=== PATIENT | male | born 1955 | race Caucasian/White ===

== ENCOUNTER 2017-11-18 11:02 | Emergency (ER) | payer BC ==
--- NOTE | 2017-11-18 11:14 | Emergency Department Record ---
History of Present Illness - General Chief Complaint: Fluid Retention Stated Complaint: RETAINING FLUID/CHF Time Seen by Provider: 11/18/17 11:08 Source: Patient, Family Mode of Arrival: Ambulatory Limitations: No limitations - History of Present Illness Initial comments: 61 yo male presents with about a week of bilateral leg edema and scrotal swelling. He reports he was seen at [facility] ED and told he has "CHF". He states he has not been told he had CHF in the past. He was prescribed a diuretic and discharged from the ED. His doctor was unable to get him in for a follow up appointment. Since starting the medication his edema has not improved. He swelling of both legs and the scrotum. No chest pain. He denies being short of breath. His is able to void. The testicles and scrotum are NOT tender. He does note weigh himself and was not instructed to from [facility]. PCP is Dionisio. -: Days(s) Location: Left, Right, Lower extremity, Other (scrotum) Quality: Aching Consistency: Constant Improves with: None Worsens with: None Associated Symptoms: Denies other symptoms - Hay Coma Scale Eye Response: (4) Open spontaneously Motor Response: (6) Obeys commands Verbal Response: (5) Oriented Hay Total: 15 - Related Data Home Medications Medication Instructions Recorded Confirmed Last Taken Mupirocin 1 gm TP ASDIR 11/18/17 11/18/17 Unknown Torsemide [Demadex] 20 mg PO DAILY 11/18/17 11/18/17 11/18/17 Allergies Allergy/AdvReac Type Severity Reaction Status Date / Time No Known Drug Allergies Allergy Verified 11/18/17 11:22 Review of Systems Constitutional: Denies: Chills, Fever, Malaise, Weakness Eyes: Denies: Eye discharge, Eye pain, Photophobia, Vision change ENT: Denies: Congestion, Throat pain Respiratory: Denies: Cough, Dyspnea, Hemoptysis, Stridor, Wheezes Cardiovascular: Denies: Chest pain, Palpitations, Syncope Endocrine: Denies: Fatigue Gastrointestinal: Denies: Abdominal pain, Diarrhea, Nausea, Vomiting Genitourinary: Denies: Dysuria, Frequency, Hematuria Musculoskeletal: Reports: Joint swelling. Denies: Arthralgia, Back pain, Myalgia, Neck pain Skin: Denies: Bruising, Change in color, Rash Neurological: Denies: Headache, Numbness, Weakness Psychiatric: Denies: Anxiety Hematological/Lymphatic: Denies: Blood Clots, Easy bleeding, Easy bruising, Swollen glands Physical Exam - General General Appearance: Alert, Oriented x3, Cooperative, No acute distress Limitations: No limitations - Head Head exam: Atraumatic, Normocephalic, Normal inspection - Eye Eye exam: Normal appearance, PERRL. negative: Conjunctival injection, Scleral icterus - ENT ENT exam: Normal exam, Mucous membranes moist Ear exam: Normal external inspection Nasal Exam: Normal inspection Mouth exam: Normal external inspection - Neck Neck exam: Normal inspection - Respiratory Respiratory exam: Normal lung sounds bilaterally. negative: Accessory muscle use, Decreased breath sounds, Respiratory distress, Rhonchi, Stridor, Wheezes - Cardiovascular Cardiovascular Exam: Regular rate, Normal rhythm, Normal heart sounds - GI/Abdominal GI/Abdominal exam: Soft. negative: Tenderness - Rectal Rectal exam: Deferred - exam: Scrotal swelling (marked scrotal swellling, erythema CW tinea for rubbing, moisture, warmth, scrotum is soft, penis is not visible) - Extremities Extremities exam: Pedal edema - Back Back exam: Reports: Normal inspection. Denies: CVA tenderness (R), CVA tenderness (L) - Neurological Neurological exam: Alert, Oriented X3 Course - Reevaluation(s) Reevaluation #1: 11/18/17 11:19 Records from [facility] requested 11/18/17 11:53 The CBC was reviewed. No acute changes. 11/18/17 12:24 The BMP was reviewed. Glucose is 344 The UA is negative. No protein 11/18/17 12:28 The [facility] chart was reviewed. 11/14/17. The BNP was 3473, US of the scrotum normal testicles, smal bilateral hydroceles, edema vs cellulitis 11/18/17 12:44 The Troponin is elevated at 0.74, the BNP is elevated at 2295 11/18/17 12:55 EKG 12:48 EKG, sinus vs atrial tach, intervals [id number], axis is left, ST NS anterior changes. I discussed with the patient the need for admission and further work up I recommend transfer to [facility] for admission. 11/18/17 13:13 I LIZZETTE Castaneda She accepts the patient for further work up at [facility] 11/18/17 13:14 CXR CMG otherwise negative Medical Decision Making - Lab Data Result diagrams: 11/18/17 11:36 11/18/17 11:36 Disposition Disposition: Transfer Clinical Impression: Elevated troponin, Elevated brain natriuretic peptide (BNP) level, Hyperglycemia Edema Qualifiers: Edema type: unspecified Qualified Code(s): R60.9 - Edema, unspecified Disposition: Acute Care Hospital Transfer Transfer To: [facility] Reason For Transfer: New onset CHF Accepting Physician: Tonya Time Discussed w/Accepting Physician: 13:14 Condition: (2) Stable Forms: Patient Portal Access Time of Disposition: 12:48 Quality - Quality Measures Quality Measures: N/A - Blood Pressure Screening Does Patient Have Any of the Following: No Blood Pressure Classification: Pre-Hypertensive BP Reading Systolic Measurement: 115 Diastolic Measurement: 86 Screening for High Blood Pressure: < Pre-Hypertensive BP, F/U Documented > [ G8950] Pre-Hypertensive Follow-up Interventions: Referral to alternative/primary care provider.
[2017-11-18 11:42] LABS: HEMOGLOBIN 14.7 gm/dl (14.0-18.0); MEAN CELL VOLUME 91.6 fl (81-97); MEAN CORPUSCULAR HEMOGLOBIN 29.9 pg (27-33); MEAN CORPUSCULAR HGB CONC 32.7 g/dl (32-36); MEAN PLATELET VOLUME 10.3 fl (7.4-10.4); PLATELET COUNT 388 K/uL (130-400); RED BLOOD COUNT 4.91 M/uL (4.40-5.70); RED CELL DISTRIBUTION WIDTH 14.7 % (11.5-14.5); WHITE BLOOD COUNT W/O DIFF 11.1 K/uL (4.2-12.2)
[2017-11-18 11:42] LABS: URINE APPEARANCE CLEAR; URINE BILIRUBIN NEGATIVE (NEGATIVE); URINE BLOOD NEGATIVE (NEGATIVE); URINE COLOR YELLOW; URINE KETONE NEGATIVE (NEGATIVE); URINE LEUKOCYTE ESTERASE NEGATIVE (NEGATIVE); URINE NITRITE NEGATIVE (NEGATIVE); URINE PROTEIN NEGATIVE (NEGATIVE); URINE UROBILINOGEN 0.2 E.U./dL (0.20 - 1.00)
[2017-11-18 11:43] LABS: URINE GLUCOSE (UA) >=1000 mg/dL (NEGATIVE)
[2017-11-18] MEDS ORDERED: NYSTATIN 15 GM TUBE TOP PRN (11:46)
[2017-11-18 11:52] LABS: PLATELET ESTIMATE NORMAL (NORMAL)
[2017-11-18 12:09] LABS: BLOOD UREA NITROGEN 22 mg/dL (8-23); CREATININE 0.6 mg/dL (0.7-1.2); EST GLOMERULAR FILTRATION RATE > 60 mL/min
[2017-11-18 12:11] LABS: GLUCOSE,RANDOM 344 mg/dL (74-109)
[2017-11-18 12:12] LABS: INR 1.02; PARTIAL THROMBOPLASTIN TIME 26.2 SECONDS (24.5-39.1)
[2017-11-18 12:41] LABS: ALBUMIN 3.4 g/dL (4.0-5.0); BILIRUBIN,DIRECT 0.3 mg/dL (0-0.3); BILIRUBIN,TOTAL 0.9 mg/dL (0.2-1.0)
[2017-11-18] MEDS ORDERED: ASPIRIN 81 MG CHEWABLE TABLET PO ONE (12:45)
[2017-11-18] MEDS ORDERED: FUROSEMIDE IV 40MG/4ML VIAL IVP ONE (12:54)
--- NOTE | 2017-11-18 14:53 | RADIOLOGY REPORT ---
EXAM: CHEST, TWO VIEWS HISTORY: CHEST PAIN. TECHNIQUE: Frontal and lateral views of the chest were obtained. Comparison: 11/11/17 chest. FINDINGS: Stable cardiomegaly. Elevation of the right hemidiaphragm with adjacent subsegmental atelectasis, as before. No pneumothorax. Atheromatous change thoracic aorta. IMPRESSION: STABLE CARDIOMEGALY. STABLE ELEVATION OF THE RIGHT HEMIDIAPHRAGM WITH ADJACENT SUBSEGMENTAL ATELECTASIS. JOB NUMBER: [id number] [facility]
== END 2017-11-18 14:52 | disposition short-term general hospital (02) ==
LOC: ER 11:02
DX: R79.89 Other specified abnormal findings of blood chemistry (principal); N44.8 Other noninflammatory disorders of the testis; E11.65 Type 2 diabetes mellitus with hyperglycemia; I10 Essential (primary) hypertension; I50.9 Heart failure, unspecified
CPT/HCPCS: 71020; 80048; 80076; 81003; 83735; 83880; 84484; 85027; 85610; 85730; 93005; 93010; 96374; 99285; J1940

== ENCOUNTER 2018-05-04 12:54 | Emergency (ER) | payer BC ==
--- NOTE | 2018-05-04 13:20 | Emergency Department Record ---
History of Present Illness - General Chief complaint: Male Urogenital Problem Stated complaint: TESTICULAR SWELLING Time Seen by Provider: 05/04/18 13:13 Source: Patient, RN notes reviewed Mode of Arrival: Ambulatory - History of Present Illness Initial comments: patient states swollen left testicle and slightly painful and he had this happen before in October and he was diagnosised with CAD and stents placed and he had atrial fib and ablation therapy. Lisinopril recently stopped because his BP was low on . [employer] Dr. Coleman. This time the testicle started swelling on Sat. 4 days ago. Patient denies chest pain. MD Complaint: Testicle swelling Onset/Timin -: Days(s) Location: Left testicle Severity scale (1-10): 2 Quality: Aching Consistency: Constant Improves with: Rest Worsens with: Movement Reports: Blood in urine - Related Data Home Medications Medication Instructions Recorded Confirmed Last Taken Potassium Chloride [Klor-Con 10] 10 meq PO DAILY 05/04/18 05/04/18 05/04/18 Allergies Allergy/AdvReac Type Severity Reaction Status Date / Time No Known Drug Allergies Allergy Verified 05/04/18 13:01 Travel Screening - Travel/Exposure Within Last 30 Days Have you traveled within the last 30 days?: No - Travel/Exposure Within Last Year Have you traveled outside the [place] in the last year?: No - Additonal Travel Details Have you been exposed to anyone with a communicable illness?: No - Travel Symptoms Symptom Screening: None Review of Systems Reviewed: No additional complaints except as noted below Constitutional: Reports: As per HPI. Denies: Chills, Fever, Malaise, Night sweats, Weakness, Weight change Eyes: Reports: As per HPI. Denies: Eye discharge, Eye pain, Photophobia, Vision change ENT: Reports: As per HPI. Denies: Congestion, Dental pain, Ear pain, Epistaxis , Hearing loss, Throat pain Respiratory: Reports: As per HPI. Denies: Cough, Dyspnea, Hemoptysis, Stridor, Wheezes Cardiovascular: Reports: As per HPI. Denies: Arrhythmia, Chest pain, Dyspnea on exertion, Edema, Murmurs, Orthopnea, Palpitations, Paroxysmal nocturnal dyspnea, Rheumatic Fever, Syncope Endocrine: Reports: As per HPI. Denies: Fatigue, Heat or cold intolerance, Polydipsia, Polyuria Gastrointestinal: Reports: As per HPI. Denies: Abdominal pain, Constipation, Diarrhea, Hematemesis, Hematochezia, Melena, Nausea, Vomiting Genitourinary: Reports: As per HPI. Denies: Dysuria, Frequency, Hematuria, Incontinence, Retention, Testicular pain, Testicular mass, Urgency Musculoskeletal: Reports: As per HPI. Denies: Arthralgia, Back pain, Gout, Joint swelling, Myalgia, Neck pain Skin: Reports: As per HPI. Denies: Bruising, Change in color, Change in hair/ nails, Lesions, Pruritus, Rash Neurological: Reports: As per HPI. Denies: Abnormal gait, Confusion, Headache, Numbness, Paresthesias, Seizure, Tingling, Tremors, Vertigo, Weakness Psychiatric: Reports: As per HPI. Denies: Anxiety, Auditory hallucinations, Depression, Homicidal thoughts, Suicidal thoughts, Visual hallucinations Hematological/Lymphatic: Reports: As per HPI. Denies: Anemia, Blood Clots, Easy bleeding, Easy bruising, Swollen glands Past Medical History - SOCIAL HISTORY Smoking Status: Never smoker Alcohol Use: None Drug Use: None - RESPIRATORY Hx Respiratory Disorders: No - CARDIOVASCULAR Hx Cardio Disorders: Yes Hx CHF: Yes Hx Edema: Yes Hx Hypertension: Yes - NEURO Hx Neuro Disorders: No - GI Hx GI Disorders: No - Hx Genitourinary Disorders: No - ENDOCRINE Hx Endocrine Disorders: Yes Hx Diabetes: Yes - MUSCULOSKELETAL Hx Musculoskeletal Disorders: No - PSYCH Hx Psych Problems: No - HEMATOLOGY/ONCOLOGY Hx Hematology/Oncology Disorders: No Family Medical History Any Significant Family History?: No Physical Exam - General General Appearance: Alert, Oriented x3, Cooperative, No acute distress - Head Head exam: Normal inspection - Eye Eye exam: Normal appearance, PERRL Pupils: Normal accommodation - ENT ENT exam: Normal exam, Mucous membranes moist, Normal external ear exam, Normal orophraynx, TM's normal bilaterally Ear exam: Normal external inspection. negative: External canal tenderness Nasal Exam: Normal inspection. negative: Discharge, Sinus tenderness Mouth exam: Normal external inspection, Tongue normal Teeth exam: Normal inspection. negative: Dental caries Throat exam: Normal inspection. negative: Tonsillar erythema, Tonsillar exudate - Neck Neck exam: Normal inspection, Full ROM. negative: Tenderness - Respiratory Respiratory exam: Normal lung sounds bilaterally. negative: Respiratory distress - Cardiovascular Cardiovascular Exam: Regular rate, Normal rhythm, Normal heart sounds - GI/Abdominal GI/Abdominal exam: Soft, Normal bowel sounds. negative: Tenderness - Rectal Rectal exam: Deferred - exam: Deferred, Scrotal swelling (left testicle) - Extremities Extremities exam: Normal inspection, Full ROM, Normal capillary refill, Pedal edema (one plus edema). negative: Tenderness - Back Back exam: Reports: Normal inspection, Full ROM. Denies: Muscle spasm, Rash noted, Tenderness - Neurological Neurological exam: Alert, Normal gait, Oriented X3, Reflexes normal - Psychiatric Psychiatric exam: Normal affect, Normal mood - Skin Skin exam: Dry, Intact, Normal color, Warm Course Vital Signs 05/04/18 13:07 Temperature 97.4 F L Pulse Rate 70 Respiratory 18 Rate Blood Pressure 102/63 Pulse Ox 100 - Reevaluation(s) Reevaluation #1: discussed case with Dr. Coleman. One dose IV lasix, will transfer to [facility] to repeat cardiac enzymes and IV antibiotics for scrotal edema and epididymitis. Will transfer to D service at [facility] 05/04/18 15:19 05/04/18 16:23 Reevaluation #2: discussed the case with Dr. Velasco and will transfer to [facility] for serial cardiac enzymes and IV antibiotics and further evaluation. 05/04/18 16:27 05/04/18 16:38 Medical Decision Making - Data Complexity MDM Data: Labs Ordered and/or Reviewed (trop t 0.039 indeterminate), X-Ray Ordered and/or Reviewed (chest xray negative), EKG Ordered and/or Reviewed ( 1degree av block, NSR,No acute changes) - Lab Data Result diagrams: 05/04/18 13:35 05/04/18 13:35 Disposition Clinical Impression: Scrotal edema, Epididymitis, Cardiac enzymes elevated CHF (congestive heart failure) Qualifiers: Heart failure type: systolic Heart failure chronicity: unspecified Qualified Code(s): I50.20 - Unspecified systolic (congestive) heart failure Disposition: Acute Care Hospital Transfer Condition: (2) Stable Forms: Patient Portal Access Time of Disposition: 16:26 Quality - Quality Measures Quality Measures: N/A - Blood Pressure Screening Does Patient Have Any of the Following: No Blood Pressure Classification: Normal BP Reading Systolic Measurement: 102 Diastolic Measurement: 63 Screening for High Blood Pressure: < Normal BP, F/U Not Required > [G8783]
[2018-05-04] MEDS ORDERED: ASPIRIN 81 MG CHEWABLE TABLET PO ONE (13:28)
[2018-05-04 13:53] LABS: HEMATOCRIT 34.9 % (42.0-52.0); HEMOGLOBIN 11.5 gm/dl (14.0-18.0); MEAN CELL VOLUME 89.3 fl (81-97); MEAN CORPUSCULAR HEMOGLOBIN 29.4 pg (27-33); MEAN PLATELET VOLUME 9.3 fl (7.4-10.4); PLATELET COUNT 325 K/uL (130-400); RED BLOOD COUNT 3.91 M/uL (4.40-5.70); RED CELL DISTRIBUTION WIDTH 13.9 % (11.5-14.5); WHITE BLOOD COUNT W/O DIFF 8.9 K/uL (4.2-12.2)
[2018-05-04 13:54] LABS: URINE APPEARANCE SL CLOUDY; URINE BILIRUBIN NEGATIVE (NEGATIVE); URINE BLOOD LARGE (NEGATIVE); URINE COLOR YELLOW; URINE KETONE NEGATIVE (NEGATIVE); URINE LEUKOCYTE ESTERASE SMALL (NEGATIVE); URINE NITRITE NEGATIVE (NEGATIVE); URINE PROTEIN NEGATIVE (NEGATIVE); URINE UROBILINOGEN 0.2 E.U./dL (0.20 - 1.00)
[2018-05-04 14:05] LABS: BLOOD UREA NITROGEN 27 mg/dL (8-23); CREATININE 0.8 mg/dL (0.7-1.2); EST GLOMERULAR FILTRATION RATE > 60 mL/min
[2018-05-04 14:07] LABS: PLATELET ESTIMATE NORMAL (NORMAL)
[2018-05-04 14:08] LABS: GLUCOSE,RANDOM 148 mg/dL (74-109)
[2018-05-04 14:09] LABS: URINE GLUCOSE (UA) >=1000 mg/dL (NEGATIVE)
[2018-05-04 14:10] LABS: URINE BACTERIA 2+; URINE EPITHELIAL CELLS NONE SEEN (FEW); URINE WBC 36 - 50 (0-2/hpf)
[2018-05-04 14:14] LABS: CKMB 11.7 ng/mL (<6.73)
[2018-05-04] MEDS ORDERED: FUROSEMIDE IV 40MG/4ML VIAL IVP ONE (15:12)
[2018-05-04] MEDS ORDERED: CIPROFLOXACIN LACTATE/D5W 400 MG/200 ML BAG IVPB ONE (15:49)
[2018-05-04 15:53] LABS: TOTAL PROTEIN 7.7 g/dL (6.6-8.7)
[2018-05-04 15:57] LABS: ALT/SGPT 16 U/L (<41); AST/SGOT 14 U/L (10.0-50.0)
[2018-05-04 15:58] LABS: ALBUMIN 4.1 g/dL (4.0-5.0); ALKALINE PHOSPHATASE 79 U/L (40-129); CREATINE PHOSPHOKINASE 140 U/L (39-308)
[2018-05-04 16:00] LABS: BILIRUBIN,DIRECT < 0.2 mg/dL (0-0.3)
--- NOTE | 2018-05-06 23:08 | RADIOLOGY REPORT ---
EXAM: CHEST 2 VIEWS HISTORY: HISTORY OF CHF, SCROTAL EDEMA. TECHNIQUE: PA and lateral views. COMPARISON: Two-view chest 11/18/17. FINDINGS: Heart size projects smaller, at about the upper limits of normal today. There is persistent elevation of the right hemidiaphragm with some minor streaky atelectasis or infiltrate in the right base. Mild thoracic dextroscoliosis with hypertrophic spurring in the mid to lower thoracic spine. No pleural effusion or pneumothorax evident. Subpleural or extrapleural density along the lower right lateral chest wall is similar to before. IMPRESSION: 1. REDUCTION IN THE HEART SIZE, NOW AT ABOUT THE UPPER LIMITS OF NORMAL. 2. PERSISTENT ELEVATION OF THE RIGHT HEMIDIAPHRAGM WITH SOME MILD STREAKY ATELECTASIS OR INFILTRATE IN THE RIGHT BASE. 3. MILD THORACIC DEXTROSCOLIOSIS WITH HYPERTROPHIC SPURRING IN THE MID TO LOWER THORACIC SPINE. JOB NUMBER: [id number] [facility]
--- NOTE | 2018-05-06 23:28 | ULTRASOUND REPORT ---
EXAM: ULTRASOUND SCROTUM HISTORY: SWOLLEN LEFT TESTICLE FOR FOUR DAYS, SLIGHTLY PAINFUL. TECHNIQUE: Real-time ultrasound examination of the scrotal content performed bilaterally. Doppler ultrasound performed with color-flow and spectral analysis. COMPARISON: No prior scrotal ultrasound with which to compare. FINDINGS: The right testicle is identified measuring approximately 2.5 x 2.9 x 4.8 cm in size. No definite intratesticular mass identified. Both arterial and venous flow evident in the right testicle with color-flow and spectral analysis. Very small amount of peritesticular fluid seen on the right. Epididymis on the right was overall somewhat poorly seen, although the head of the epididymis probably measures about 1.7 cm in size. The left testicle is identified measuring approximately 2.3 x 3.5 x 5.3 cm in size. No definite intratesticular mass seen on the left. Both arterial and venous flow evident in the left testicle with color-flow and spectral analysis Doppler. However, there is diffuse abnormality in much of the peritesticular space on the left with a combination of fluid and more complex material seen. There is no history of trauma to suggest hematoma and this could represent a large infected hydrocele. Epididymis on the left measures about 1.6 cm in diameter. Epididymis appears to be somewhat hyperemic as well, which could represent a diffuse epididymitis. IMPRESSION: 1. TESTICLES THEMSELVES APPEAR ESSENTIALLY NEGATIVE WITH FLOW SEEN BILATERALLY. 2. VERY SMALL AMOUNT OF PERITESTICULAR FLUID ON THE RIGHT. 3. LARGE COMPLEX PERITESTICULAR COLLECTION ON THE LEFT MAY REPRESENT INFECTION. EPIDIDYMIS APPEARS SOMEWHAT HYPEREMIC WELL, WHICH COULD BE ASSOCIATED EPIDIDYMITIS. JOB NUMBER: [id number] [facility]
== END 2018-05-04 17:47 | disposition short-term general hospital (02) ==
LOC: ER 12:54
DX: N45.1 Epididymitis (principal); R79.89 Other specified abnormal findings of blood chemistry; N50.89 Other specified disorders of the male genital organs; J44.9 Chronic obstructive pulmonary disease, unspecified; I10 Essential (primary) hypertension; I50.20 Unspecified systolic (congestive) heart failure; E11.9 Type 2 diabetes mellitus without complications
CPT/HCPCS: 99285 ×2; 96365; 96375; 82550; 85730; 80076; 82553; 80048; 81001; 84484; 85027; 71046; 76870; 93005; 93010; J0744; J1940

== ENCOUNTER 2019-10-31 18:57 | Emergency (ER) | payer BC ==
[2019-10-31] MEDS ORDERED: FUROSEMIDE IV 40MG/4ML VIAL IVP ONE (19:22)
--- NOTE | 2019-10-31 19:26 | Emergency Department Record ---
History of Present Illness - General Chief complaint: Extremity Problem Stated complaint: SWOLLEN LEGS Time Seen by Provider: 10/31/19 19:08 Source: Patient Mode of Arrival: Ambulatory Limitations: No limitations - History of Present Illness Initial comments: 63 yo male presents to ED for evaluation of lower extremity swelling that has worsened over the past several days. Patient reports a history of CHF and lower extremity edema, does take Lasix 40 mg daily. Patient denies shortness of breath, denies chest pain or discomfort, and denies any recent medication changes except for his dialysis medication. Patient reports that he does stand all day long on concrete, does not want to were compression stalkings. MD Complaint: Extremity swelling Onset/Timin -: Days(s) Location: Bilateral, Ankle, Foot, Lower Leg History of Same: Yes Radiation: Proximal Consistency: Constant Improves with: Nothing Worsens with: Nothing Associated Symptoms: Denies other symptoms - Related Data Home Medications Medication Instructions Recorded Confirmed Last Taken Semaglutide [Ozempic] 10/31/19 Unknown Semaglutide [Ozempic] 10/31/19 Unknown Allergies Allergy/AdvReac Type Severity Reaction Status Date / Time No Known Drug Allergies Allergy Verified 10/31/19 19:10 Travel Screening - Travel/Exposure Within Last 30 Days Have you traveled within the last 30 days?: No - Travel/Exposure Within Last Year Have you traveled outside the [place] in the last year?: No - Additonal Travel Details Have you been exposed to anyone with a communicable illness?: No - Travel Symptoms Symptom Screening: None Review of Systems Constitutional: Denies: Chills, Fever, Malaise, Night sweats Eyes: Denies: Eye discharge, Eye pain ENT: Denies: Congestion, Ear pain, Epistaxis Respiratory: Denies: Cough, Dyspnea Cardiovascular: Reports: Edema. Denies: Chest pain, Dyspnea on exertion Endocrine: Denies: Fatigue, Heat or cold intolerance Gastrointestinal: Denies: Abdominal pain, Nausea, Vomiting Genitourinary: Denies: Incontinence, Retention Musculoskeletal: Denies: Arthralgia, Back pain Skin: Denies: Bruising, Change in color Neurological: Denies: Abnormal gait, Confusion, Headache, Tingling, Tremors Psychiatric: Denies: Anxiety Hematological/Lymphatic: Denies: Anemia, Blood Clots Past Medical History - SOCIAL HISTORY Smoking Status: Never smoker Alcohol Use: None Drug Use: None - RESPIRATORY Hx Respiratory Disorders: No - CARDIOVASCULAR Hx Cardio Disorders: Yes Hx CHF: Yes Hx Edema: Yes Hx Hypertension: Yes - NEURO Hx Neuro Disorders: No - GI Hx GI Disorders: No - Hx Genitourinary Disorders: No - ENDOCRINE Hx Endocrine Disorders: Yes Hx Diabetes: Yes - MUSCULOSKELETAL Hx Musculoskeletal Disorders: No - PSYCH Hx Psych Problems: No - HEMATOLOGY/ONCOLOGY Hx Hematology/Oncology Disorders: No Family Medical History Any Significant Family History?: No Physical Exam - General General Appearance: Alert, Oriented x3, Cooperative, Mild distress Limitations: No limitations - Head Head exam: Atraumatic, Normocephalic, Normal inspection Head exam detail: negative: Abrasion, Contusion, Sweeney's sign, General tenderness, Hematoma, Laceration - Eye Eye exam: Normal appearance. negative: Conjunctival injection, Periorbital swelling, Periorbital tenderness, Scleral icterus - ENT Ear exam: negative: Auricular hematoma, Auricular trauma Nasal Exam: negative: Active bleeding, Discharge, Dried blood, Foreign body Mouth exam: negative: Drooling, Laceration, Muffled voice, Tongue elevation - Neck Neck exam: Normal inspection. negative: Meningismus, Tenderness - Respiratory Respiratory exam: Normal lung sounds bilaterally. negative: Respiratory distress, Rhonchi, Stridor, Wheezes - Cardiovascular Cardiovascular Exam: Regular rate, Normal rhythm, Normal heart sounds - GI/Abdominal GI/Abdominal exam: Soft. negative: Rebound, Rigid, Tenderness - Rectal Rectal exam: Deferred - exam: Deferred - Extremities Extremities exam: Pedal edema. negative: Tenderness - Back Back exam: Denies: CVA tenderness (R), CVA tenderness (L) - Neurological Neurological exam: Alert, Normal gait, Oriented X3 - Psychiatric Psychiatric exam: Normal affect, Normal mood - Skin Skin exam: Normal color. negative: Abrasion Type of lesion: negative: abrasion Course Vital Signs 10/31/19 10/31/19 19:08 19:16 Temperature 98.4 F 98.4 F Pulse Rate [ 80 Left] Respiratory 16 16 Rate Blood Pressure 159/82 [Left Arm] Pulse Ox 95 95 - Reevaluation(s) Reevaluation #1: 10/31/19 19:37 EKG: NSR 76 LAD, LBBB No acute ST-T wave changes Reevaluation #2: 10/31/19 20:30 Laboratory studies were reviewed and appear grossly unremarkable for an acute process. Examination appears c/w peripheral lower extremity edema symtpoms. Will increase Lasix to BID for 3 days with instructions to follow-up with his PCP in 3-5 days as directed. Recommended support stalkings as well as needed to reduce lower extremity edema symptoms. Patient appears stable for discharge at this time. Medical Decision Making - Lab Data Result diagrams: 10/31/19 19:37 10/31/19 19:37 Disposition Disposition: Discharge Clinical Impression: Lower extremity edema Disposition: Home, Self-Care Condition: (2) Stable Instructions: Leg Edema (ED) Additional Instructions: Return to ED if your symptoms worsen or if you have any concerns. Take your Lasix twice daily for 3 days, elevate lower extremities to reduce swelling. Follow-up with your family doctor in 3-5 days as directed. Forms: Patient Portal Access Time of Disposition: 20:33 Quality - Quality Measures Quality Measures: N/A - Blood Pressure Screening Does Patient Have Any of the Following: No Blood Pressure Classification: Pre-Hypertensive BP Reading Systolic Measurement: 159 Diastolic Measurement: 82 Screening for High Blood Pressure: < Pre-Hypertensive BP, F/U Documented > [G8950] Pre-Hypertensive Follow-up Interventions: Referral to alternative/primary care provider.
[2019-10-31 19:54] LABS: ABSOLUTE NEUTROPHIL COUNT 5.44; BASO % 0.1 % (0-6); EOS % 3.6 % (0-6); GRAN % 67.7 % (47-80); HEMATOCRIT 42.2 % (42.0-52.0); HEMOGLOBIN 13.9 gm/dl (14.0-18.0); MEAN CELL VOLUME 90.2 fl (81-97); MEAN CORPUSCULAR HEMOGLOBIN 29.7 pg (27-33); MEAN CORPUSCULAR HGB CONC 32.9 g/dl (32-36); MEAN PLATELET VOLUME 9.6 fl (7.4-10.4); MONO % 7.6 % (0-9); PLATELET COUNT 253 K/uL (130-400); RED BLOOD COUNT 4.68 M/uL (4.40-5.70); RED CELL DISTRIBUTION WIDTH 13.6 % (11.5-14.5)
[2019-10-31 20:05] LABS: BLOOD UREA NITROGEN 21 mg/dL (8-23); CREATININE 0.8 mg/dL (0.7-1.2); EST GLOMERULAR FILTRATION RATE > 60 mL/min
[2019-10-31 20:06] LABS: TOTAL PROTEIN 7.3 g/dL (6.6-8.7)
[2019-10-31 20:08] LABS: GLUCOSE,RANDOM 221 mg/dL (74-109)
[2019-10-31 20:11] LABS: ALB/GLOB RATIO 1.4 (1.1-1.8); ALBUMIN 4.3 g/dL (4.0-5.0); ALKALINE PHOSPHATASE 95 U/L (40-129); ALT/SGPT 21 U/L (<41); AST/SGOT 19 U/L (10.0-50.0)
[2019-10-31 20:13] LABS: NTpro B-NATRIURETIC PEPTIDE 84.96 pg/mL (<125)
== END 2019-10-31 20:50 | disposition home or self-care (01) ==
LOC: ER 18:57
DX: R60.0 Localized edema (principal); I50.9 Heart failure, unspecified; I10 Essential (primary) hypertension; E11.9 Type 2 diabetes mellitus without complications
CPT/HCPCS: 80053; 83880; 85025; 93005; 93010; 96374; 99284; J1940

== ENCOUNTER 2019-11-06 18:43 | Emergency (ER) | payer BC ==
--- NOTE | 2019-11-06 18:57 | Emergency Department Record ---
History of Present Illness - General Chief complaint: Lower Extremity Pain Stated complaint: BILATERAL LEG SWELLING Time Seen by Provider: 11/06/19 18:44 Source: Patient Mode of Arrival: Ambulatory Limitations: No limitations - History of Present Illness Initial comments: 63 yo male returns to ED for evaluation of recurrent lower extremity edema symptoms. Patient reports that he was off for 4 days of work following a dental procedure, reports his lower extremity edema symptoms improved while not standing at work. Patient had previously doubles his Lasix for 3 days as well with some improvement. Upon returning to work today, his edema symptoms have worsened. Patient has been previously counseled about the use of compression stalking but does not want to wear them. Patient denies shortness of breath symptoms, chest discomfort, or progression of his previous symptoms from 10/30. MD Complaint: Extremity swelling Onset/Timin -: Week(s) Location: Bilateral History of Same: Yes Quality: Aching Consistency: Constant Improves with: Elevation Worsens with: Weight bearing Associated Symptoms: Denies other symptoms - Related Data Allergies Allergy/AdvReac Type Severity Reaction Status Date / Time No Known Drug Allergies Allergy Verified 10/31/19 19:10 Travel Screening - Travel/Exposure Within Last 30 Days Have you traveled within the last 30 days?: No Review of Systems Constitutional: Denies: Chills, Fever, Malaise, Night sweats Eyes: Denies: Eye discharge, Eye pain ENT: Denies: Congestion, Ear pain, Epistaxis Respiratory: Denies: Cough, Dyspnea Cardiovascular: Reports: Edema. Denies: Chest pain, Dyspnea on exertion Endocrine: Denies: Fatigue, Heat or cold intolerance Gastrointestinal: Denies: Abdominal pain, Nausea, Vomiting Genitourinary: Denies: Incontinence, Retention Musculoskeletal: Denies: Arthralgia, Back pain Skin: Denies: Bruising, Change in color Neurological: Denies: Abnormal gait, Confusion, Headache, Tingling, Tremors Psychiatric: Denies: Anxiety Hematological/Lymphatic: Denies: Anemia, Blood Clots Past Medical History - SOCIAL HISTORY Smoking Status: Never smoker Drug Use: None - RESPIRATORY Hx Respiratory Disorders: No - CARDIOVASCULAR Hx Cardio Disorders: Yes Hx CHF: Yes Hx Edema: Yes Hx Hypertension: Yes - NEURO Hx Neuro Disorders: No - GI Hx GI Disorders: No - Hx Genitourinary Disorders: No - ENDOCRINE Hx Endocrine Disorders: Yes Hx Diabetes: Yes - MUSCULOSKELETAL Hx Musculoskeletal Disorders: No - PSYCH Hx Psych Problems: No - HEMATOLOGY/ONCOLOGY Hx Hematology/Oncology Disorders: No Physical Exam - General General Appearance: Alert, Oriented x3, Cooperative, No acute distress Limitations: No limitations - Head Head exam: Atraumatic, Normocephalic, Normal inspection Head exam detail: negative: Abrasion, Contusion, Sweeney's sign, General tenderness, Hematoma, Laceration - Eye Eye exam: Normal appearance. negative: Conjunctival injection, Periorbital swelling, Periorbital tenderness, Scleral icterus - ENT Ear exam: negative: Auricular hematoma, Auricular trauma Nasal Exam: negative: Active bleeding, Discharge, Dried blood, Foreign body Mouth exam: negative: Drooling, Laceration, Muffled voice, Tongue elevation - Neck Neck exam: Normal inspection. negative: Meningismus, Tenderness - Respiratory Respiratory exam: Normal lung sounds bilaterally. negative: Respiratory d istress, Rhonchi, Stridor, Wheezes - Cardiovascular Cardiovascular Exam: Regular rate, Normal rhythm, Normal heart sounds - GI/Abdominal GI/Abdominal exam: Soft. negative: Rebound, Rigid, Tenderness - Rectal Rectal exam: Deferred - exam: Deferred - Extremities Extremities exam: Pedal edema (2+ edema bilaterally). negative: Calf tenderness, Tenderness - Back Back exam: Denies: CVA tenderness (R), CVA tenderness (L) - Neurological Neurological exam: Alert, Normal gait, Oriented X3 - Psychiatric Psychiatric exam: Normal affect, Normal mood - Skin Skin exam: Normal color. negative: Abrasion Type of lesion: negative: abrasion Course Vital Signs 11/06/19 18:50 Temperature 98.1 F Pulse Rate [ 82 Pulse Ox Probe] Respiratory 20 Rate Blood Pressure 148/90 [Left Arm] Pulse Ox 97 - Reevaluation(s) Reevaluation #1: 11/06/19 18:56 Laboratory studies from 10/31 were reviewed and appears grossly unremarkable for an exacerbation of CHF or acute renal impairment. Case was discussed with Dr. Colunga, recommends again doubling the patient's Lasix for 3 days with instructions to follow-up in the office at that time for reassessment. If the edema is still present, he may add Bumex for additional diuresis. Patient was updated on the plan of care and is in agreement as discussed. Patient appears stable for discharge at this time. Disposition Disposition: Discharge Clinical Impression: Lower extremity edema Disposition: Home, Self-Care Condition: (2) Stable Instructions: Leg Edema (ED) Additional Instructions: Return to ED if your symptoms worsen or if you have any concerns. Take your Lasix BID for [address] Colunga's office in the morning for a follow-up appointment in 3 days. Compression stalking as discussed. Forms: Patient Portal Access Time of Disposition: 18:55 Quality - Quality Measures Quality Measures: N/A - Blood Pressure Screening Does Patient Have Any of the Following: Active Dx of HTN Blood Pressure Classification: Hypertensive Reading Systolic Measurement: 148 Diastolic Measurement: 90 Screening for High Blood Pressure: Patient Exclusion, Hx of HTN [[id number]]
== END 2019-11-06 19:06 | disposition home or self-care (01) ==
LOC: ER 18:43
DX: R60.0 Localized edema (principal); I10 Essential (primary) hypertension; I50.9 Heart failure, unspecified; E11.9 Type 2 diabetes mellitus without complications
CPT/HCPCS: 99283